=== PATIENT | female | born 1970 | race African-American/Black ===

== ENCOUNTER → 2021-05-01 | Outpatient (CLI) | payer MEDICAID ==
[~2021-05-01] MED LIST: NO HOME MEDICATION
[2021-05-01 09:44] LABS: Basophils # (auto) 0 10 ^3/uL (0-0.2); Basophils % (auto) 0.6 % (0.0-2.0); Eosinophils # (auto) 0.1 10 ^3/uL (0-0.8); Eosinophils % (auto) 1.1 % (0.0-7.0); Hematocrit 39.3 % (36.0-46.0); Hemoglobin 13.1 g/dL (12.2-16.2); Lymphocytes # (auto) 1.9 10 ^3/uL (0.4-5.4); Lymphocytes % (auto) 28.2 % (10.0-50.0); Mean Corpuscular Hemoglobin 30.7 pg (28.0-32.0); Mean Corpuscular Hgb Conc. 33.4 g/dL (32.0-36.0); Mean Corpuscular Volume 91.9 fL (80.0-100.0); Monocytes # (auto) 0.6 10 ^3/uL (0-1.3); Monocytes % (auto) 8.5 % (0.0-12.0); Neutrophils # (auto) 4.2 10 ^3/uL (1.6-8.6); Neutrophils % (auto) 61.6 % (37.0-80.0); Nucleated Red Blood Cells % 0.1 %; Red Blood Cells 4.27 10^6/uL (4.0-5.20); Red Cell Distribution Width 13.3 % (11.8-14.3); White Blood Cell 6.9 10^3/uL (4.4-10.8)
[2021-05-01 11:17] LABS: Follicle Stimulating Hormone 37.96 IU/L (SEE BELOW); Leuteinizing Hormone 18.3 IU/L
== END | disposition home or self-care (01) ==
LOC: LAB 09:27
PROVIDERS: ATTEND Specialist
DX: Z01.419 Encounter for gynecological examination (general) (routine) without abnormal findings (principal)
CPT/HCPCS: 36415; 83001; 83002; 85025

== ENCOUNTER → 2021-11-24 | Outpatient (CLI) | payer MEDICAID ==
[2021-11-24 11:25] LABS: Basophils # (auto) 0 10 ^3/uL (0-0.2); Basophils % (auto) 0.5 % (0.0-2.0); Eosinophils # (auto) 0 10 ^3/uL (0-0.8); Eosinophils % (auto) 0.7 % (0.0-7.0); Hematocrit 39.1 % (36.0-46.0); Hemoglobin 13.1 g/dL (12.2-16.2); Lymphocytes % (auto) 30.7 % (10.0-50.0); Mean Corpuscular Hgb Conc. 33.5 g/dL (32.0-36.0); Mean Corpuscular Volume 92.4 fL (80.0-100.0); Monocytes # (auto) 0.4 10 ^3/uL (0-1.3); Monocytes % (auto) 6.8 % (0.0-12.0); Neutrophils # (auto) 3.9 10 ^3/uL (1.6-8.6); Neutrophils % (auto) 61.3 % (37.0-80.0); Red Blood Cells 4.23 10^6/uL (4.0-5.20); Red Cell Distribution Width 13.1 % (11.8-14.3); White Blood Cell 6.4 10^3/uL (4.4-10.8)
[2021-11-24 12:23] LABS: Potassium 3.6 mmol/L (3.5-5.1)
[2021-11-24 12:29] LABS: Albumin 3.8 g/dL (3.4-5.0); BUN/Creatinine Ratio 20.2; Bilirubin, Total 0.5 mg/dL (0.2-1.0)
== END | disposition home or self-care (01) ==
LOC: LAB 09:48
PROVIDERS: ATTEND Internal Medicine
DX: C50.912 Malignant neoplasm of unspecified site of left female breast (principal)
CPT/HCPCS: 36415; 80053; 83615; 85025; 86300

== ENCOUNTER → 2021-12-01 | Day surgery (SDC) | payer MEDICAID ==
[2021-11-28 10:27] LABS: Basophils # (auto) 0 10 ^3/uL (0-0.2); Basophils % (auto) 0.5 % (0.0-2.0); Eosinophils # (auto) 0 10 ^3/uL (0-0.8); Eosinophils % (auto) 0.5 % (0.0-7.0); Hematocrit 40.8 % (36.0-46.0); Hemoglobin 13.4 g/dL (12.2-16.2); Lymphocytes % (auto) 29.8 % (10.0-50.0); Mean Corpuscular Hemoglobin 30.4 pg (28.0-32.0); Mean Corpuscular Hgb Conc. 32.8 g/dL (32.0-36.0); Mean Corpuscular Volume 92.7 fL (80.0-100.0); Monocytes # (auto) 0.5 10 ^3/uL (0-1.3); Monocytes % (auto) 7.1 % (0.0-12.0); Neutrophils # (auto) 4.1 10 ^3/uL (1.6-8.6); Neutrophils % (auto) 62.1 % (37.0-80.0); Nucleated Red Blood Cells % 0.1 %; Red Cell Distribution Width 13.2 % (11.8-14.3); White Blood Cell 6.5 10^3/uL (4.4-10.8)
[2021-11-28 12:43] LABS: Potassium 3.3 mmol/L (3.5-5.1)
[2021-11-28 12:48] LABS: Albumin 3.8 g/dL (3.4-5.0); BUN/Creatinine Ratio 14.3; Calcium 9.4 mg/dL (8.5-10.1)
[2021-11-28 12:50] LABS: Bilirubin, Total 0.5 mg/dL (0.2-1.0); Total Protein 7.9 g/dL (6.4-8.2)
[~2021-12-01] VITALS: Ht 157.5 cm; Wt 57.6 kg
[~2021-12-01] MED LIST changes: +ASCO500T11 PO; +CHOL20007 PO; +CYAN1TAB14 PO; +LISI20TA28 PO; +MIDAZOLAM HCL 5 MG/ML-1ML VIAL ONE; -NO HOME MEDICATION; +SODIUM CHLORIDE LOCK 10 ML ONE
[2021-12-01] MEDS: MIDAZOLAM HCL 5 MG/ML-1ML VIAL ONE ×4 (13:52→14:04)
[2021-12-01] MEDS: fentaNYL CITRATE 100 MCG/2 ML VL ONE ×4 (13:52→14:07)
[2021-12-01] MEDS: diphenhdrAMINE HCL 50 MG/1 ML VL ONE ×2 (13:52→13:57)
[2021-12-01 15:05] VITALS: BP 166/74
== END | disposition home or self-care (01) ==
LOC: GI 13:03
PROVIDERS: ATTEND Internal Medicine Gastroenterology
DX: Z12.11 Encounter for screening for malignant neoplasm of colon (principal); K64.8 Other hemorrhoids; K63.89 Other specified diseases of intestine; Z85.3 Personal history of malignant neoplasm of breast; Z90.12 Acquired absence of left breast and nipple; Z98.51 Tubal ligation status; Z82.49 Family history of ischemic heart disease and other diseases of the circulatory system; Z83.42 Family history of familial hypercholesterolemia; Z82.61 Family history of arthritis; Z81.8 Family history of other mental and behavioral disorders; Z88.0 Allergy status to penicillin; Z88.1 Allergy status to other antibiotic agents; Z20.822 Contact with and (suspected) exposure to COVID-19
CPT/HCPCS: 36415; 45378; 80053; 81025; 84702; 85025; J1200; J2250; J3010; J7030; U0003; 99152

== ENCOUNTER → 2022-11-20 | Outpatient (CLI) | payer MEDICAID ==
[~2022-11-20] MED LIST changes: -MIDAZOLAM HCL 5 MG/ML-1ML VIAL ONE; -SODIUM CHLORIDE LOCK 10 ML ONE
[2022-11-20 08:24] LABS: Follicle Stimulating Hormone 130.13 IU/L (SEE BELOW); Prolactin 6.39 ng/mL (2.8-29.2)
== END | disposition home or self-care (01) ==
LOC: LAB 06:56
PROVIDERS: ATTEND Student in an Organized Health Care Education/Training Program
DX: N95.1 Menopausal and female climacteric states (principal)
CPT/HCPCS: 36415; 83001; 84132; 84146; 84443

== ENCOUNTER → 2022-12-31 | Outpatient (CLI) | payer MEDICAID ==
[2022-12-31 07:27] LABS: Basophils # (auto) 0.1 10 ^3/uL (0-0.2); Basophils % (auto) 0.8 % (0.0-2.0); Eosinophils # (auto) 0.1 10 ^3/uL (0-0.8); Hematocrit 39.1 % (36.0-46.0); Hemoglobin 12.9 g/dL (12.2-16.2); Lymphocytes # (auto) 2.3 10 ^3/uL (0.4-5.4); Lymphocytes % (auto) 33.3 % (10.0-50.0); Mean Corpuscular Hemoglobin 30.1 pg (28.0-32.0); Mean Corpuscular Volume 91.2 fL (80.0-100.0); Monocytes # (auto) 0.6 10 ^3/uL (0-1.3); Monocytes % (auto) 8.3 % (0.0-12.0); Neutrophils % (auto) 56.6 % (37.0-80.0); Red Blood Cells 4.29 10^6/uL (4.0-5.20); Red Cell Distribution Width 13.6 % (11.8-14.3)
[2022-12-31 08:12] LABS: Albumin 3.8 g/dL (3.4-5.0); Calcium 9.3 mg/dL (8.5-10.1); Potassium 3.1 mmol/L (3.5-5.1)
[2022-12-31 08:21] LABS: BUN/Creatinine Ratio 22.9; Bilirubin, Total 0.7 mg/dL (0.2-1.0)
== END | disposition home or self-care (01) ==
LOC: LAB 07:03
PROVIDERS: ATTEND Student in an Organized Health Care Education/Training Program
DX: I10 Essential (primary) hypertension (principal); N95.1 Menopausal and female climacteric states
CPT/HCPCS: 36415; 80053; 80061; 82274; 85025

== ENCOUNTER → 2023-02-12 | Outpatient (CLI) | payer MEDICAID | END | disposition home or self-care (01) | LOC: LAB 15:43 | PROVIDERS: ATTEND Student in an Organized Health Care Education/Training Program | DX: I10 Essential (primary) hypertension (principal); E87.6 Hypokalemia | CPT/HCPCS: 36415; 84132 ==

== ENCOUNTER → 2023-09-13 | Outpatient (CLI) | payer MEDICAID ==
[~2023-09-13] MED LIST changes: -LISI20TA28 PO; +LISI20TA56 PO
[2023-09-13 07:23] LABS: Basophils # (auto) 0 10 ^3/uL (0-0.2); Basophils % (auto) 0.7 % (0.0-2.0); Eosinophils # (auto) 0.1 10 ^3/uL (0-0.8); Hematocrit 39.7 % (36.0-46.0); Lymphocytes # (auto) 2.1 10 ^3/uL (0.4-5.4); Lymphocytes % (auto) 33.8 % (10.0-50.0); Mean Corpuscular Hgb Conc. 32.7 g/dL (32.0-36.0); Mean Corpuscular Volume 91.8 fL (80.0-100.0); Monocytes # (auto) 0.5 10 ^3/uL (0-1.3); Monocytes % (auto) 8.5 % (0.0-12.0); Neutrophils # (auto) 3.5 10 ^3/uL (1.6-8.6); Nucleated Red Blood Cells % 0.1 %; Red Blood Cells 4.32 10^6/uL (4.0-5.20); Red Cell Distribution Width 13.5 % (11.8-14.3); White Blood Cell 6.2 10^3/uL (4.4-10.8)
[2023-09-13 07:31] LABS: Urine Bacteria NONE SEEN /hpf (None Seen); Urine Blood Negative /uL (Negative); Urine Clarity Clear (Clear); Urine Color Yellow (Yellow); Urine Protein, UAD Negative (Negative); Urine Urobilinogen Normal (Negative); Urine WBC <1 /hpf (0 - 5); Urine pH 5.5 (5.0-8.0)
[2023-09-13 08:01] LABS: Alanine Aminotransferase 27 U/L (7-40); Albumin 4.6 g/dL (3.2-4.8); Alkaline Phosphatase 90 U/L (46-116); Anion Gap 11 (5-15); Aspartate Aminotransferase 18 U/L (13-40); BUN/Creatinine Ratio 12.4 (10.0-20.0); Blood Urea Nitrogen 12 mg/dL (9-23); Calcium 9.3 mg/dL (8.5-10.1); Carbon Dioxide 25 mmol/L (20-30); Chloride 101 mmol/L (98-107); Glucose 85 mg/dL (74-106); LDL Cholesterol 118 mg/dL (< 100); Potassium 3.2 mmol/L (3.5-5.1); Sodium 137 mmol/L (136-145); Triglycerides 96 mg/dL (< 150)
[2023-09-13 08:02] LABS: Bilirubin, Total 0.8 mg/dL (0.2-1.0); Cholesterol 187 mg/dL (< 200); Free T4 (Free Thyroxine) 0.87 ng/dL (0.89-1.76); HDL Cholesterol 54 mg/dL (40-59); Total Protein 7.6 g/dL (5.7-8.2)
[2023-09-14 08:06] LABS: CA 27.29 16.6 U/mL (0.0-38.6)
[2023-09-14 09:06] LABS: Cancer Antigen (CA) 125 5.5 U/mL (0.0-38.1); Cancer Antigen (CA) 15-3 16.1 U/mL (0.0-25.0); Carbohydrate Antigen 19-9 <2 U/mL (0-35)
== END | disposition home or self-care (01) ==
LOC: LAB 06:47
PROVIDERS: ATTEND Internal Medicine
DX: E78.6 Lipoprotein deficiency (principal); I10 Essential (primary) hypertension; Z98.890 Other specified postprocedural states
CPT/HCPCS: 36415; 80053; 80061; 81001; 82306; 82607; 83036; 84439; 84443; 85025; 86300; 86301; 86304

== ENCOUNTER → 2023-09-25 | Outpatient (CLI) | payer MEDICAID ==
[2023-09-25 08:09] LABS: Chloride 106 mmol/L (98-107); Potassium 3.7 mmol/L (3.5-5.1); Sodium 140 mmol/L (136-145)
[2023-09-25 08:10] LABS: Anion Gap 6 (5-15); Calcium 9.7 mg/dL (8.5-10.1); Carbon Dioxide 28 mmol/L (20-30)
[2023-09-25 08:15] LABS: BUN/Creatinine Ratio 11.8 (10.0-20.0); Blood Urea Nitrogen 13 mg/dL (9-23); Glucose 83 mg/dL (74-106)
== END | disposition home or self-care (01) ==
LOC: LAB 07:16
PROVIDERS: ATTEND Internal Medicine
DX: E87.6 Hypokalemia (principal)
CPT/HCPCS: 36415; 80048

== ENCOUNTER 2023-12-12 09:40 | Emergency (ER) | payer MEDICAID ==
[~2023-12-12] VITALS: Ht 157.5 cm; Wt 60.5 kg
[2023-12-12 10:35] VITALS: BP 197/98; PULSE 66; RESP 18; TEMP 98.7; O2SAT 98
[2023-12-12 10:37] LABS: Basophils # (auto) 0.1 10 ^3/uL (0-0.2); Basophils % (auto) 1.1 % (0.0-2.0); Eosinophils # (auto) 0.1 10 ^3/uL (0-0.8); Eosinophils % (auto) 0.8 % (0.0-7.0); Hematocrit 42.2 % (36.0-46.0); Hemoglobin 13.7 g/dL (12.2-16.2); Lymphocytes # (auto) 2.2 10 ^3/uL (0.4-5.4); Lymphocytes % (auto) 32.1 % (10.0-50.0); Mean Corpuscular Hemoglobin 29.9 pg (28.0-32.0); Mean Corpuscular Hgb Conc. 32.5 g/dL (32.0-36.0); Mean Corpuscular Volume 92.1 fL (80.0-100.0); Monocytes # (auto) 0.4 10 ^3/uL (0-1.3); Monocytes % (auto) 5.3 % (0.0-12.0); Neutrophils # (auto) 4.2 10 ^3/uL (1.6-8.6); Neutrophils % (auto) 60.7 % (37.0-80.0); Nucleated Red Blood Cells % 0.1 %; Red Blood Cells 4.58 10^6/uL (4.0-5.20); Red Cell Distribution Width 13.5 % (11.8-14.3)
[2023-12-12 10:48] LABS: Chloride 106 mmol/L (98-107); Potassium 3.6 mmol/L (3.5-5.1); Sodium 142 mmol/L (136-145)
[2023-12-12 10:49] LABS: Anion Gap 8 (5-15); Carbon Dioxide 28 mmol/L (20-30)
[2023-12-12 10:50] LABS: Calcium 9.4 mg/dL (8.7-10.4)
[2023-12-12 10:54] LABS: BUN/Creatinine Ratio 11.2 (10.0-20.0); Blood Urea Nitrogen 10 mg/dL (9-23); Glucose 89 mg/dL (74-106)
[2023-12-12] MEDS: cloNIDine HCL 0.1 MG TAB PO ONE (10:57)
[2023-12-12] MEDS ORDERED: IBUP-1454 PO (11:50)
[2023-12-12] MEDS ORDERED: METH4PAK PO (11:50)
[2023-12-12] MEDS ORDERED: BACDST PO (11:50)
[2023-12-12 12:05] LABS: Urine Bacteria NONE SEEN /hpf (None Seen); Urine Blood Negative /uL (Negative); Urine Clarity Clear (Clear); Urine Protein, UAD Negative (Negative); Urine Specific Gravity 1.018 (1.001-1.035); Urine Urobilinogen Normal (Negative); Urine WBC <1 /hpf (0 - 5); Urine pH 6.5 (5.0-8.0)
[2023-12-12 12:06] LABS: Urine Color Straw (Yellow)
== END 2023-12-12 11:59 | disposition home or self-care (01) ==
LOC: ER 09:40
DX: J01.90 Acute sinusitis, unspecified (principal); I10 Essential (primary) hypertension; Z79.899 Other long term (current) drug therapy; Z88.0 Allergy status to penicillin; Z88.1 Allergy status to other antibiotic agents; Z88.8 Allergy status to other drugs, medicaments and biological substances
CPT/HCPCS: 36415; 80048; 81001; 85025; 93005

== ENCOUNTER → 2024-04-08 | Outpatient (CLI) | payer MEDICAID ==
[~2024-04-08] MED LIST changes: +BACDST PO; +IBUP-1454 PO; +METH4PAK PO
[2024-04-08 07:47] LABS: Urine Bacteria None Seen /hpf (None Seen)
[2024-04-08 08:12] LABS: Urine Blood Negative /uL (Negative); Urine Clarity Clear (Clear); Urine Protein, UAD Negative (Negative); Urine Specific Gravity 1.008 (1.001-1.035); Urine Urobilinogen Normal (Negative); Urine WBC <1 /hpf (0 - 5)
[2024-04-08 08:13] LABS: Urine Color Straw (Yellow)
[2024-04-08 08:18] LABS: Basophils # (auto) 0 10 ^3/uL (0-0.2); Basophils % (auto) 0.5 % (0.0-2.0); Eosinophils # (auto) 0.1 10 ^3/uL (0-0.8); Eosinophils % (auto) 1.1 % (0.0-7.0); Hematocrit 39.6 % (36.0-46.0); Hemoglobin 13.1 g/dL (12.2-16.2); Lymphocytes # (auto) 2.3 10 ^3/uL (0.4-5.4); Lymphocytes % (auto) 32.8 % (10.0-50.0); Mean Corpuscular Hemoglobin 30.3 pg (28.0-32.0); Mean Corpuscular Volume 91.6 fL (80.0-100.0); Monocytes # (auto) 0.5 10 ^3/uL (0-1.3); Monocytes % (auto) 6.7 % (0.0-12.0); Neutrophils # (auto) 4.1 10 ^3/uL (1.6-8.6); Neutrophils % (auto) 58.9 % (37.0-80.0); Nucleated Red Blood Cells % 0.1 %; Red Blood Cells 4.32 10^6/uL (4.0-5.20); Red Cell Distribution Width 13.3 % (11.8-14.3)
[2024-04-08 08:37] LABS: Alanine Aminotransferase 18 U/L (7-40); Albumin 4.5 g/dL (3.2-4.8); Alkaline Phosphatase 105 U/L (46-116); Anion Gap 8 (5-15); Aspartate Aminotransferase 15 U/L (13-40); BUN/Creatinine Ratio 9.9 (10.0-20.0); Bilirubin, Total 0.7 mg/dL (0.2-1.0); Blood Urea Nitrogen 9 mg/dL (9-23); Calcium 9.7 mg/dL (8.5-10.1); Carbon Dioxide 26 mmol/L (20-30); Chloride 105 mmol/L (98-107); Cholesterol 156 mg/dL (< 200); Glucose 88 mg/dL (74-106); HDL Cholesterol 51 mg/dL (40-59); LDL Cholesterol 94 mg/dL (< 100); Potassium 3.6 mmol/L (3.5-5.1); Sodium 139 mmol/L (136-145); Total Protein 7.4 g/dL (5.7-8.2); Triglycerides 105 mg/dL (< 150)
== END | disposition home or self-care (01) ==
LOC: LAB 07:36
PROVIDERS: ATTEND Internal Medicine
DX: I10 Essential (primary) hypertension (principal); R73.03 Prediabetes; E53.8 Deficiency of other specified B group vitamins; E55.9 Vitamin D deficiency, unspecified; Z86.39 Personal history of other endocrine, nutritional and metabolic disease
CPT/HCPCS: 36415; 80053; 80061; 81001; 82306; 82607; 83036; 85025

== ENCOUNTER → 2024-11-02 | Outpatient (CLI) | payer MEDICAID ==
[2024-11-02 07:23] LABS: Urine Bacteria None Seen /hpf (None Seen)
[2024-11-02 07:41] LABS: Basophils # (auto) 0.1 10 ^3/uL (0-0.2); Basophils % (auto) 1.1 % (0.0-2.0); Eosinophils # (auto) 0 10 ^3/uL (0-0.8); Eosinophils % (auto) 0.7 % (0.0-7.0); Hemoglobin 13.1 g/dL (12.2-16.2); Lymphocytes # (auto) 2.5 10 ^3/uL (0.4-5.4); Lymphocytes % (auto) 35.8 % (10.0-50.0); Mean Corpuscular Hemoglobin 30.4 pg (28.0-32.0); Mean Corpuscular Hgb Conc. 32.8 g/dL (32.0-36.0); Mean Corpuscular Volume 92.9 fL (80.0-100.0); Monocytes # (auto) 0.5 10 ^3/uL (0-1.3); Neutrophils # (auto) 3.8 10 ^3/uL (1.6-8.6); Neutrophils % (auto) 55.4 % (37.0-80.0); Nucleated Red Blood Cells % 0.1 %; Platelet Count (auto) 215 10^3/uL (140-450); Red Blood Cells 4.31 10^6/uL (4.0-5.20); Red Cell Distribution Width 13.4 % (11.8-14.3); White Blood Cell 6.9 10^3/uL (4.4-10.8)
[2024-11-02 08:05] LABS: Urine Blood TRACE /uL (Negative); Urine Clarity Clear (Clear); Urine Color Light-Yellow (Yellow); Urine Protein, UAD Negative (Negative); Urine Specific Gravity 1.022 (1.001-1.035); Urine Squamous Epithelial Cell FEW /hpf (<5); Urine Urobilinogen Normal (Negative); Urine WBC 1 /hpf (0 - 5)
[2024-11-02 08:14] LABS: Alanine Aminotransferase 23 U/L (7-40); Albumin 4.6 g/dL (3.2-4.8); Alkaline Phosphatase 100 U/L (46-116); Triglycerides 101 mg/dL (< 150)
[2024-11-02 08:15] LABS: Anion Gap 9 (5-15); Aspartate Aminotransferase 23 U/L (13-40); BUN/Creatinine Ratio 20.2 (10.0-20.0); Bilirubin, Total 0.9 mg/dL (0.2-1.0); Blood Urea Nitrogen 19 mg/dL (9-23); Carbon Dioxide 25 mmol/L (20-31); Chloride 107 mmol/L (98-107); Cholesterol 191 mg/dL (< 200); Glucose 78 mg/dL (74-106); HDL Cholesterol 55 mg/dL (40-59); Potassium 3.6 mmol/L (3.5-5.1); Sodium 141 mmol/L (136-145); Total Protein 7.4 g/dL (5.7-8.2)
[2024-11-02 08:16] LABS: LDL Cholesterol 116 mg/dL (< 100)
== END | disposition home or self-care (01) ==
LOC: LAB 06:40
PROVIDERS: ATTEND Internal Medicine
DX: I10 Essential (primary) hypertension (principal); E55.9 Vitamin D deficiency, unspecified; E53.8 Deficiency of other specified B group vitamins; R73.03 Prediabetes
CPT/HCPCS: 36415; 80053; 80061; 81001; 82306; 82607; 83036; 85025

== ENCOUNTER → 2025-03-19 | Outpatient (CLI) | payer MEDICAID ==
[2025-03-19 10:53] LABS: Basophils # (auto) 0.1 10 ^3/uL (0-0.2); Basophils % (auto) 0.9 % (0.0-2.0); Eosinophils # (auto) 0 10 ^3/uL (0-0.8); Eosinophils % (auto) 0.7 % (0.0-7.0); Hematocrit 41.9 % (36.0-46.0); Hemoglobin 14.1 g/dL (12.2-16.2); Lymphocytes % (auto) 28.7 % (10.0-50.0); Mean Corpuscular Hemoglobin 30.5 pg (28.0-32.0); Mean Corpuscular Hgb Conc. 33.6 g/dL (32.0-36.0); Mean Corpuscular Volume 90.6 fL (80.0-100.0); Monocytes # (auto) 0.5 10 ^3/uL (0-1.3); Monocytes % (auto) 7.2 % (0.0-12.0); Neutrophils # (auto) 4.3 10 ^3/uL (1.6-8.6); Neutrophils % (auto) 62.5 % (37.0-80.0); Nucleated Red Blood Cells % 0.1 %; Platelet Count (auto) 227 10^3/uL (140-450); Red Blood Cells 4.62 10^6/uL (4.0-5.20); Red Cell Distribution Width 12.8 % (11.8-14.3); White Blood Cell 6.8 10^3/uL (4.4-10.8)
[2025-03-19 11:34] LABS: Alanine Aminotransferase 19 U/L (7-40); Alkaline Phosphatase 107 U/L (46-116); Anion Gap 7 (5-15); Aspartate Aminotransferase 17 U/L (13-40); Blood Urea Nitrogen 16 mg/dL (9-23); Carbon Dioxide 29 mmol/L (20-31); Glucose 88 mg/dL (74-106); Potassium 4.2 mmol/L (3.5-5.1); Sodium 143 mmol/L (136-145)
[2025-03-19 11:39] LABS: Calcium 10.6 mg/dL (8.7-10.4); Chloride 107 mmol/L (98-107)
== END | disposition home or self-care (01) ==
LOC: LAB 10:33
PROVIDERS: ATTEND Internal Medicine
DX: C50.912 Malignant neoplasm of unspecified site of left female breast (principal); Z88.0 Allergy status to penicillin
CPT/HCPCS: 36415; 80053; 83615; 85025; 86300

== ENCOUNTER 2025-06-29 10:31 | Outpatient (CLI) | payer MEDICAID ==
[2025-06-29 11:34] LABS: Alanine Aminotransferase 37 U/L (7-40); Albumin 4.4 g/dL (3.2-4.8); Alkaline Phosphatase 109 U/L (46-116); Anion Gap 8 (5-15); BUN/Creatinine Ratio 14.3 (10.0-20.0); Blood Urea Nitrogen 12 mg/dL (9-23); Calcium 9.3 mg/dL (8.7-10.4); Carbon Dioxide 29 mmol/L (20-31); Chloride 103 mmol/L (98-107); Cholesterol 182 mg/dL (< 200); Glucose 84 mg/dL (74-106); HDL Cholesterol 56 mg/dL (40-59); Potassium 4.2 mmol/L (3.5-5.1); Sodium 140 mmol/L (136-145); Total Protein 7.7 g/dL (5.7-8.2); Triglycerides 102 mg/dL (< 150)
[2025-06-29 11:35] LABS: Bilirubin, Total 0.7 mg/dL (0.2-1.0)
== END 2025-06-29 17:00 | disposition home or self-care (01) ==
LOC: LAB 10:31
PROVIDERS: ATTEND Internal Medicine
DX: I10 Essential (primary) hypertension (principal); E55.9 Vitamin D deficiency, unspecified; E53.8 Deficiency of other specified B group vitamins; R73.03 Prediabetes; R53.83 Other fatigue
CPT/HCPCS: 36415; 80053; 80061; 82306; 82607; 83036

== ENCOUNTER 2025-09-22 06:58 | Outpatient (CLI) | payer MEDICAID ==
[~2025-09-22] VITALS: Ht 157.5 cm; Wt 59.0 kg
--- NOTE | 2025-09-22 12:10 | DVHCARD ---
Cardiology Stress Test [place] Treadmill Stress Test [place] Referring MD: MD Tila Protocol: Amor (with cardiolite) Reason for referral: Other (Newly diagnosed HFrEF) Target heart Rate:@85%: 141 Percent MPHR: 166 METS: 10.10 Resting Heart rate: 62 Resting Blood Pressure: 179/95 Exercise Heart Rate: 184 Exercise Blood Pressure: 235/109 Reason for Termination of Test: Completion of Protocol Baseline EKG: Sinus rhythm, T-wave inversion to inferior, lateral and anterior leads Stress EKG: Sinus tachycardia with non-progressive ST-segment changes Functional Capacity: Good Normal Heart Rate Response: Adequate Blood Pressure Response: Hypertensive Clinical response: Non-ischemic Arrhythmia?: No Cardiolite Injected?: Yes ST-T Changes: Non/Minimal Probability of Inducible Ische: Perfusion result pending Comments: Consider cardiac catheterization given newly diagnosed CM Date of Service: Sep 22, 2025 Billing Provider: MARVEL EUCEDA Cardiology Common Codes: PROCEDURE ONLY Treadmill W/Cardiolite Nuclear: [id number], INTERP, RPT MARVEL EUCEDA Sep 22, 2025 12:10
--- NOTE | 2025-09-27 09:35 | DVHSR ---
APPROVED REPORT Exam: Nuclear Stress Test BMI: 0 Stress Test Details Stress Test: Exercise stress testing was performed using a Amor protocol. 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 PIV S/L flushes well, reviewed POC, pt verbalized understanding. [place] INSTRUCTOR OF NURSING here to monitor exam. Treadmill test performed per protocol. Pt stable, tolerated well, VS returned to baseline. Pt to follow up with telephone interceptor operator for results. Stress ECG Conclusion lvef 39% mild anterior wall reversible ischemia cannot rule out breast artifact 1/[address] depression inferior on stress portion NM EXAM: Myocardial Perfusion REST/STRESS Imaging Protocol: Rest Tc-99m/Stress Tc-99m 1 day Resting Data Rest SPECT myocardial perfusion imaging was performed in supine position 60 minutes following the intravenous injection of 10.0 mCi of Tc-99m Sestamibi. Time of rest injection: 07:45 Date: 09/22/2025 Time of rest imagin:45 Date: 09/22/2025 Administration Route: IV Administration Site: Right Hand Pharmacologic Stress Pharmacologic stress test was performed by injecting Regadenoson 0.4 mg IV push followed by the intravenous injection of 30.0 mCi of Tc-99m Sestamibi. Time of stress injection: 09:36 Date: 09/22/2025 Time of stress imagin:36 Date: 09/22/2025 Administration Route: IV Administration Site: Right Hand Gated Stress SPECT was performed 60 minutes after stress injection. The images were gated to evaluate regional wall motion and calculate left ventricular ejection fraction. Stress only was performed in the Supine position. Nuclear Conclusion Nuclear Findings: positive for ischemia lvef 39% mild anterior wall reversible ischemia cannot rule out breast artifact 1/[address] depression inferior on stress portion
[2025-09-30] MEDS ORDERED: SACU1TAB PO (10:55)
== END 2025-09-22 17:00 | disposition home or self-care (01) ==
LOC: XYW 06:58
PROVIDERS: ATTEND Internal Medicine
DX: I11.0 Hypertensive heart disease with heart failure (principal); I50.20 Unspecified systolic (congestive) heart failure
CPT/HCPCS: 78452; A9500; 93017

== ENCOUNTER 2025-09-29 14:54 | Inpatient (IN) | payer MEDICAID ==
[~2025-09-29] VITALS: Ht 157.5 cm; Wt 62.3 kg
[2025-09-29 15:45] VITALS: BP 172/104; PULSE 69; RESP 17; TEMP 97.4; O2SAT 98
[2025-09-29] MEDS ORDERED: POTA-36 PO (15:59)
[2025-09-29] MEDS ORDERED: ERGO2000 PO (15:59)
[2025-09-29] MEDS ORDERED: CYAN100T7 PO (15:59)
[2025-09-29] MEDS ORDERED: LOSA-534 PO (15:59)
[2025-09-29] MEDS ORDERED: ACETAMINOPHEN 325 MG TAB PO PRN (16:15)
[2025-09-29] MEDS ORDERED: NITROGLYCERIN 0.4 MG SL TAB SL PRN (16:15)
[2025-09-29] MEDS ORDERED: MORPHINE SULFATE INJ 2 MG/ml SYRG IV PRN ×2 (16:15)
[2025-09-29] MEDS ORDERED: LORazepam 0.5 MG TAB PO PRN (16:15)
[2025-09-29] MEDS: SODIUM CHLORIDE 0.9% 1,000 ML IV SCH (16:15)
--- NOTE | 2025-09-29 16:18 | DVHHP2 ---
History of Present Illness Reason for Visit: Shortness of Breath History of Present Illness Patient is a 55 year-old F with a PMHx of Hypertensive Heart Disease w/chronic systolic CHF who presented to the clinic today with complaints of worsening shortness of breath and occasional chest pain. Patient had a NM stress test done recently which showed that was positive for Ischemia. Patient was suppose to see Cardiology clinic but did not do so. Patient was admitted for further workup. Review of Systems Constitutional: No: Fever, Chills, Sweats, Weakness, Malaise, Other Eyes: No: Pain, Vision change, Conjunctivae inflammation, Eyelid inflammation, Other, Redness ENT: No: Ear pain, Ear discharge, Nose pain, Nose discharge, Nose congestion, Mouth pain, Mouth swelling, Throat pain, Throat swelling, Other Respiratory: No: Cough, Dry, Shortness of breath, SOB with excertion, Wheezing, Hemoptysis, Pleuritic Pain, Sputum, Wheezing, Other Cardiovascular: No: Chest Pain, Palpitations, Orthopnea, Paroxysmal Noc. Dyspnea, Edema, Lt Headedness, Other Gastrointestinal: No: Nausea, Vomiting, Abdominal Pain, Diarrhea, Constipation, Melena, Hematochezia, Other Genitourinary: No Dysuria, No Frequency, No Incontinence, No Hematuria, No Retention, No Other Musculoskeletal: No: other, neck pain, shoulder pain, arm pain, back pain, hand pain, leg pain, foot pain Skin: No: Rash, Lesions, Jaundice, Bruising, Other Neurological: No: Weakness, Numbness, Incoordination, Change in speech, Confusion, Seizures, Other Allergies: Coded Allergies: Cephalexin (Verified Allergy, Mild, 09/22/25) Levofloxacin (Unverified Allergy, Mild, rash, 09/22/25) Penicillins (Verified Allergy, Mild, 09/22/25) Ciprofloxacin (Verified Allergy, Unknown, 09/22/25) Medications Current Medications Medications Dose Ordered Sig/Lynsey Route Start Time Stop Time Status Last Admin Dose Admin Sodium Chloride 1,000 ml @ 60 mls/hr [id number] IV 09/29/25 16:15 UNV Lorazepam 0.5 mg Q6HP PRN PO 09/29/25 16:15 UNV Acetaminophen 650 mg Q6HP PRN PO 09/29/25 16:15 UNV Acetaminophen/ Hydrocodone Bitart 1 tab Q4HP PRN PO 09/29/25 16:15 UNV Ondansetron HCl 4 mg Q4HP PRN IV 09/29/25 16:15 UNV Morphine Sulfate 2 mg Q4HPRN PRN IV 09/29/25 16:15 UNV Nitroglycerin 0.4 mg Q5MINP PRN SL 09/29/25 16:15 UNV Morphine Sulfate 2 mg Q30M PRN IV 09/29/25 16:15 UNV Exam General Appearance: Alert, Oriented X3, Cooperative, No acute distress HEENT: Atraumatic Respiratory: Clear to auscultation Cardiovascular: Regular rate, Normal S1, Normal S2 Abdominal: Normal bowel sounds, Soft Extremities: No clubbing Psych/Mental Status: Mental status NL SEPSIS Sepsis Screen Physician Orders Chest Xray 1 View (09/29/25 15:24) Electrocardigram (09/29/25 15:27) Admit (09/29/25 16:06) Code Status (09/29/25 16:06) Review Orders With Adm.Md (09/29/25 16:06) Regular Diet (09/29/25 Dinner) Sodium Chloride 0.9% (09/29/25 16:15) Lorazepam Tablet (Ativan Tablet) (09/29/25 16:15) Acetaminophen Tablet (Tylenol Tablet) (09/29/25 16:15) Notify Md Of Changes From Base (09/29/25 16:06) Advance Directive (09/29/25 16:06) Urinalysis (09/29/25 16:06) Complete Blood Count (09/29/25 16:06) Patient Condition (09/29/25 16:06) Allergies (09/29/25 16:06) Hydrocodone-Acet 5/325mg Tab ([place] 5/32 (09/29/25 16:15) Ondansetron Hcl (Zofran) (09/29/25 16:15) Morphine Sulfate Injection (09/29/25 16:15) Nitroglycerin Sublingual (Ntrostat Subli (09/29/25 16:15) Morphine Sulfate Injection (09/29/25 16:15) Stat Ekg For Chest Pain (09/29/25 16:06) Notify Md Of Changes From Base (09/29/25 16:06) Record Clerk For 24 Hours (09/29/25 16:06) Emergency Dysrhythmia Protocol (09/29/25 16:06) Rhythm Strips Once Every Shift (09/29/25 16:06) Oxygen By Nasal Cannula (09/29/25 16:06) Comprehensive Metabolic Panel (09/29/25 16:06) Hemoglobin A1c (09/29/25 16:06) Npo After Midnight (09/29/25 16:06) Npo (Nothing By Mouth) Diet (09/30/25 Breakfast) Prothrombin Time W/ Inr (09/29/25 16:06) Partial Thromboplastin Time (09/29/25 16:06) Assessment/Plan Assessment/Plan # Unstable Angina - For [facility] tomorrow by Dr. Hopkins # Chronic Systolic CHF - EF 40% - Entresto as outpatient # Hypertensive Heart Disease - Resume Losartan on discharge Plan discussed with: Patient My Orders Orders - TAMMY COVARRUBIAS MD Procedure Category Date Status Time Chest Xray 1 View XY 09/29/25 Taken 15:24 Electrocardigram EKG 09/29/25 Logged 15:27 Admit ADMIT 09/29/25 Transmitted 16:06 Code Status CODE 09/29/25 Transmitted 16:06 Review Orders With CARLOS 09/29/25 In Process Adm. 16:06 Regular Diet DIET 09/29/25 Transmitted Dinner Sodium Chloride 0.9% PHA 09/29/25 Logged 16:15 Lorazepam Tablet PHA 09/29/25 Logged (Ativan Tablet) 16:15 Acetaminophen Tablet PHA 09/29/25 Logged (Tylenol Tablet) 16:15 Notify Of Changes [facility] 09/29/25 In Process From Base 16:06 Advance Directive [facility] 09/29/25 In Process 16:06 Urinalysis LAB 09/29/25 Logged 16:06 Complete Blood Count LAB 09/29/25 Logged 16:06 Patient Condition ORDERS 09/29/25 Transmitted 16:06 Allergies [facility] 09/29/25 In Process 16:06 Hydrocodone-Acet PHA 09/29/25 Logged 5/325mg Tab ([place] 16:15 Ondansetron Hcl PHA 09/29/25 Logged (Zofran) 16:15 Morphine Sulfate PHA 09/29/25 Logged Injection 16:15 Nitroglycerin PHA 09/29/25 Logged Sublingual (Ntrostat 16:15 Morphine Sulfate PHA 09/29/25 Logged Injection 16:15 Stat Ekg For Chest [facility] 09/29/25 In Process Pain 16:06 Notify Md Of Changes [facility] 09/29/25 In Process From Base 16:06 Record Clerk For [facility] 09/29/25 In Process 24 Hours 16:06 Emergency Dysrhythmia [facility] 09/29/25 In Process Protocol 16:06 Rhythm Strips Once [facility] 09/29/25 In Process Every Shift 16:06 Oxygen By Nasal RT 09/29/25 Transmitted Cannula 16:06 Comprehensive LAB 09/29/25 Logged Metabolic Panel 16:06 Hemoglobin A1c LAB 09/29/25 Logged 16:06 Npo After Midnight [facility] 09/29/25 In Process 16:06 Npo (Nothing By DIET 09/30/25 Transmitted Mouth) Diet Breakfast Prothrombin Time W/ LAB 09/29/25 Logged INR 16:06 Partial LAB 09/29/25 Logged Thromboplastin Time 16:06 Date of Service: Sep 29, 2025 Billing Provider: TAMMY COVARRUBIAS MD Common Visit Codes: [id number] INP/OBS CARE (HIGH) TAMMY COVARRUBIAS MD Sep 29, 2025 16:18
--- NOTE | 2025-09-29 16:20 | DVH ---
CHEST RADIOGRAPH INDICATION: SHORTNESS OF BREATH TECHNIQUE: Single frontal view of the chest was obtained COMPARISON: None FINDINGS: Lines and Tubes: None Lungs: No focal consolidation. Pleura: No effusion. No pneumothorax. Cardiomediastinal contours: Unremarkable Bones: No acute osseous abnormality. IMPRESSION: 1. No acute cardiopulmonary disease.
[2025-09-29 16:42] LABS: Hematocrit 39.6 % (36.0-46.0); Hemoglobin 13.2 g/dL (12.2-16.2); Mean Corpuscular Hemoglobin 30.3 pg (28.0-32.0); Mean Corpuscular Volume 90.7 fL (80.0-100.0); Nucleated Red Blood Cells % 0.1 %
[2025-09-29 16:58] LABS: Alanine Aminotransferase 25 U/L (7-40); Albumin 4.4 g/dL (3.2-4.8); Alkaline Phosphatase 104 U/L (46-116); Anion Gap 11 (5-15); BUN/Creatinine Ratio 19.8 (10.0-20.0); Bilirubin, Total 0.5 mg/dL (0.2-1.0); Blood Urea Nitrogen 18 mg/dL (9-23); Calcium 9.8 mg/dL (8.7-10.4); Carbon Dioxide 26 mmol/L (20-31); Chloride 106 mmol/L (98-107); Glucose 86 mg/dL (74-106); Potassium 4.2 mmol/L (3.5-5.1); Sodium 143 mmol/L (136-145); Total Protein 7.3 g/dL (5.7-8.2)
[2025-09-29 17:05] LABS: INR 1.0 (0.9-1.15); Partial Thromboplastin Time 29.9 SEC (24.5-34.5); Prothrombin Time 10.6 sec (9.3-11.8)
[2025-09-29] MEDS: LOSARTAN POTASSIUM 50 MG TAB PO ONE (17:27)
[2025-09-29 19:35] LABS: Urine Protein, UAD Negative (Negative)
[2025-09-29 20:00] VITALS: PULSE 67; RESP 16
[2025-09-29 21:00] VITALS: BP 147/97; PULSE 72; RESP 17; TEMP 97.5; O2SAT 99
[2025-09-30] VITALS (8 sets, daily range): BP systolic 105–162; BP diastolic 60–93; PULSE 58–74; RESP 12–18; TEMP 97.6–98; O2SAT 94–100
[2025-09-30] MEDS ORDERED: HEPARIN IN NS 1000Units/500mL 1,500 ML ONE (07:46)
[2025-09-30] MEDS ORDERED: IOHEXOL 350 MG/ML 100ML IJ ONE (07:46)
[2025-09-30] MEDS ORDERED: fentaNYL CITRATE 100 MCG/2 ML VL ONE (08:51)
[2025-09-30] MEDS ORDERED: MIDAZOLAM HCL 2MG/2ML 2ml VIAL (1mg/ml) ONE (08:51)
[2025-09-30] MEDS ORDERED: LIDOCAINE 2%HCL (LOCAL ANESTH.) INJ 20ML MDV ONE (08:51)
--- NOTE | 2025-09-30 09:07 | ECG ---
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
--- NOTE | 2025-09-30 09:48 | DVHOP ---
PROCEDURES PERFORMED: * Selective left and right coronary angiography. * Ventriculogram. * Right iliac angiography. INDICATION: The patient is having excessive amount of shortness of breath and intermittent episodes of chest pain. Because of the above findings, the patient is suggested that the patient undergo coronary angiography to define coronary anatomy. Risks and benefits were explained to the patient. DESCRIPTION OF PROCEDURE: The patient was prepped and draped in the usual sterile condition. Xylocaine 1% was used to anesthetize the right groin. Using the Cook needle, the right femoral artery was engaged with a Seldinger technique. A 6-Turkmen sheath in the right femoral artery. Using a 6-Turkmen JL4 catheter and 6-Turkmen JR4 catheter, selective left and right coronary angiography was performed. Using a 6-Turkmen Pigtail catheter, a ventriculogram was done. There were no complications. The patient tolerated the procedure well. RESULTS: * Left main patent. * Left anterior descending artery was patent. * Right coronary artery was patent. * Circumflex artery was patent. * Left ventricular ejection fraction showed global hypokinesis with an estimated EF of less than 30% with an LVEDP of 15 mmHg. Aggressive risk modification should be implemented, but no catheter-based or surgical intervention is warranted. The patient will benefit from EECP. Sandeep Valentin MD SA/JAYESH TID: [id number] RECEIPT: [id number]
[2025-09-30] MEDS: LOSARTAN POTASSIUM 50 MG TAB PO SCH (10:00)
--- NOTE | 2025-09-30 10:03 | DVHPN2 ---
Progress Note - Dictate Date Seen: Sep 29, 2025 Medical Necessity Reason Pt with a Central, PICC or Fol: No Subjective PT WITH PROGRESSIVE SOB HX OF SYSTOLIC HF NOW WITH CHEST PAIN vital signs Vital Sign Date Time Temp Pulse Resp B/P (MAP) Pulse Ox O2 Delivery O2 Flow Rate FiO2 09/30/25 05:00 98.0 74 16 105/60 (75) 100 98.0 09/29/25 20:00 Room Air* 0 21 Total Intake and Output 09/29/25 09/29/25 09/30/25 15:00 23:00 07:00 Intake Total 0 ml 150 ml Balance 0 ml 150 ml medications Current Medications Medications Dose Ordered Sig/Lynsey Route Start Time Stop Time Status Last Admin Dose Admin Sodium Chloride 1,000 ml @ 60 mls/hr [id number] IV 09/29/25 16:15 Lorazepam 0.5 mg Q6HP PRN PO 09/29/25 16:15 Acetaminophen 650 mg Q6HP PRN PO 09/29/25 16:15 Acetaminophen/ Hydrocodone Bitart 1 tab Q4HP PRN PO 09/29/25 16:15 Ondansetron HCl 4 mg Q4HP PRN IV 09/29/25 16:15 Morphine Sulfate 2 mg Q4HPRN PRN IV 09/29/25 16:15 Nitroglycerin 0.4 mg Q5MINP PRN SL 09/29/25 16:15 Morphine Sulfate 2 mg Q30M PRN IV 09/29/25 16:15 Losartan Potassium 50 mg DAILY PO 09/30/25 10:00 Clonidine HCl 0.1 mg Q4HP PRN PO 09/29/25 17:15 09/30/25 01:38 0.1 MG laboratory and microbiology Laboratory Tests 09/29/25 16:32 Test 09/29/25 16:32 Range/Units Serum Glucose 86 74-106 mg/dL Problem List HFrEF CHRONIC Assessment/Plan [facility] Plan discussed with: Patient RACHEL SANDOVAL MD Sep 30, 2025 10:03
--- NOTE | 2025-09-30 10:04 | DVHPN2 ---
Progress Note - Dictate Date Seen: Sep 30, 2025 Medical Necessity Reason Pt with a Central, PICC or Fol: No Subjective PT WITH PROGRESSIVE SOB HX OF SYSTOLIC HF NOW WITH CHEST PAIN vital signs Vital Sign Date Time Temp Pulse Resp B/P (MAP) Pulse Ox O2 Delivery O2 Flow Rate FiO2 09/30/25 05:00 98.0 74 16 105/60 (75) 100 98.0 09/29/25 20:00 Room Air* 0 21 Total Intake and Output 09/29/25 09/29/25 09/30/25 15:00 23:00 07:00 Intake Total 0 ml 150 ml Balance 0 ml 150 ml medications Current Medications Medications Dose Ordered Sig/Lynsey Route Start Time Stop Time Status Last Admin Dose Admin Sodium Chloride 1,000 ml @ 60 mls/hr [id number] IV 09/29/25 16:15 Lorazepam 0.5 mg Q6HP PRN PO 09/29/25 16:15 Acetaminophen 650 mg Q6HP PRN PO 09/29/25 16:15 Acetaminophen/ Hydrocodone Bitart 1 tab Q4HP PRN PO 09/29/25 16:15 Ondansetron HCl 4 mg Q4HP PRN IV 09/29/25 16:15 Morphine Sulfate 2 mg Q4HPRN PRN IV 09/29/25 16:15 Nitroglycerin 0.4 mg Q5MINP PRN SL 09/29/25 16:15 Morphine Sulfate 2 mg Q30M PRN IV 09/29/25 16:15 Losartan Potassium 50 mg DAILY PO 09/30/25 10:00 Clonidine HCl 0.1 mg Q4HP PRN PO 09/29/25 17:15 09/30/25 01:38 0.1 MG laboratory and microbiology Laboratory Tests 09/29/25 16:32 Test 09/29/25 16:32 Range/Units Serum Glucose 86 74-106 mg/dL Problem List HFrEF CHRONIC Assessment/Plan [facility] S/P NORMAL CORONARIES EF 30% MAY DC HOME F/U IN 2 WEEKS Plan discussed with: Patient RACHEL SANDOVAL MD Sep 30, 2025 10:04
--- NOTE | 2025-09-30 10:53 | DVHDS2 ---
Discharge Summary Date of Admission Sep 29, 2025 at 14:54 Date of Discharge: Sep 30, 2025 Labs/Diagnostic Data: Laboratory Results Test 09/29/25 17:45 09/29/25 16:32 Urine Color Colorless (Yellow) Urine Clarity Clear (Clear) Urine pH 6.5 (5.0-9.0) Urine Specific [place] 1.013 (1.001-1.035) Urine Protein Negative (Negative) Urine Ketones Negative (Negative) Urine Blood Negative /uL (Negative) Urine Nitrite Negative (Negative) Urine Bilirubin Negative (Negative) Urine Urobilinogen Normal mg/dL (Negative) Urine Leukocyte Esterase Negative /uL (Negative) Urine RBC 1 /hpf (0 - 4) Urine Microscopic WBC < 1 /HPF (0-5) Urine Squamous Epithelial Cells None seen /hpf (<5) Urine Bacteria None seen /hpf (None Seen) Urine Glucose Normal mg/dL (Normal) White Blood Count 8.8 10^3/uL (4.4-10.8) Red Blood Count 4.37 10^6/uL (4.0-5.20) Hemoglobin 13.2 g/dL (12.2-16.2) Hematocrit 39.6 % (36.0-46.0) Mean Corpuscular Volume 90.7 fL (80.0-100.0) Mean Corpuscular Hemoglobin 30.3 pg (28.0-32.0) Mean Corpuscular Hemoglobin Concent 33.4 g/dL (32.0-36.0) Red Cell Distribution Width 13.7 % (11.8-14.3) Platelet Count 219 10^3/uL (140-450) Mean Platelet Volume 9.5 fL (6.9-10.8) Neutrophils (%) (Auto) 59.6 % (37.0-80.0) Lymphocytes (%) (Auto) 31.0 % (10.0-50.0) Monocytes (%) (Auto) 7.5 % (0.0-12.0) Eosinophils (%) (Auto) 0.8 % (0.0-7.0) Basophils (%) (Auto) 1.1 % (0.0-2.0) Neutrophils # (Auto) 5.3 10 ^3/uL (1.6-8.6) Lymphocytes # (Auto) 2.7 10 ^3/uL (0.4-5.4) Monocytes # (Auto) 0.7 10 ^3/uL (0-1.3) Eosinophils # (Auto) 0.1 10 ^3/uL (0-0.8) Basophils # (Auto) 0.1 10 ^3/uL (0-0.2) Nucleated Red Blood Cells 0.1 % Prothrombin Time 10.6 sec (9.3-11.8) Prothrombin Time INR 1.00 (0.9-1.15) Activated Partial Thromboplast Time 29.9 SEC (24.5-34.5) Sodium Level 143 mmol/L (136-145) Potassium Level 4.2 mmol/L (3.5-5.1) Chloride Level 106 mmol/L (98-107) Carbon Dioxide Level 26 mmol/L (20-31) Anion Gap 11 (5-15) Blood Urea Nitrogen 18 mg/dL (9-23) Creatinine 0.91 mg/dL (0.550-1.02) Glomerular Filtration Rate Calc 75 mL/min (>90) BUN/Creatinine Ratio 19.8 (10.0-20.0) Serum Glucose 86 mg/dL (74-106) Hemoglobin A1c 5.7 % A1C (<5.7) Calcium Level 9.8 mg/dL (8.7-10.4) Total Bilirubin 0.5 mg/dL (0.2-1.0) Aspartate Amino Transferase (AST) 22 U/L (13-40) Alanine Aminotransferase (ALT) 25 U/L (7-40) Alkaline Phosphatase 104 U/L (46-116) Total Protein 7.3 g/dL (5.7-8.2) Albumin 4.4 g/dL (3.2-4.8) Other Laboratory Tests 09/29/25 16:32 Brief Hx & Hospital Course: see dictated note Condition at Discharge: Fair Final Diagnosis/Problems List chest pain Discharge Disposition: Home Discharge Instruct/Medications Diet: Cardiac 2g Na,low cholest Activity: No Restrictions, As Tolerated Follow Up/Referral: fu with dr Adorno in 2 wks Medications: script to pharmacy dc losartan Scheduled Cholecalciferol (Vitamin D3), 2,000 UNIT PO DAILY, (Reported) Cyanocobalamin (Vitamin B12), 100 MCG PO DAILY, (Reported) Ergocalciferol (Vitamin D2), 50,000 UNIT PO QWEEKLY, (Reported) Ibuprofen (Ibuprofen), 1 TAB PO TID Losartan Potassium (Losartan Potassium), 1 TAB PO DAILY, (Reported) Methylprednisolone (Medrol Dosepak), 4 MG PO UD Potassium Chloride (Potassium Chloride Cr), 20 MEQ PO BID, (Reported) Sulfamethoxazole W/Trimethopri (Bactrim Ds Tablet), 1 TAB PO BID Miscellaneous Medications Ascorbic Acid (Vitamin C Tablet), 1,000 MG PO, (Reported) Cyanocobalamin (B12), 1,000 MCG PO, (Reported) Lisinopril (Lisinopril), 10 MG PO, (Reported) Discharge Statement: "Patient was advised to return to the ER or call 911 if any headaches, dizziness, shortness of breath, chest pain, abdominal pain, bleeding, fevers, or worsening of medical condition. Patient was counseled about treatment plan, medications, possible side effects, patientverbalized understanding. All questions were answered to the best of my ability. This discharge took greater then 30 minutes in planning, reviewing documentation, counseling the patient, and discussing with other team members." ASSESSMENT ASSESSMENT Assessment chest pain Date of Service: Sep 30, 2025 Billing Provider: JANINA MARSHALL MD Common Visit Codes: 67265-UOZ/OBS DISCH DAY >30min JANINA MARSHALL MD Sep 30, 2025 10:53
[2025-09-30] MEDS ORDERED: SACU1TAB PO ×2 (10:55→15:45)
[2025-09-30] MEDS ORDERED: CARV-214 PO (10:55)
[2025-09-30] MEDS ORDERED: EMPA1TAB PO (10:55)
[2025-09-30] MEDS: ONDANSETRON HCL 4 MG/2 ML VIAL IV PRN (12:21)
[2025-09-30] MEDS: HYDROcodone-ACET 5/325MG TAB PO PRN (12:22)
--- NOTE | 2025-09-30 17:36 | DVHDS ---
DATE OF DISCHARGE: 09/30/2025 HISTORY OF PRESENT ILLNESS: The patient is a 55-year-old lady who was admitted with complaints of chest pain and has a history of chronic systolic heart failure and hypertension. HOSPITAL COURSE: The patient underwent coronary angiography by Dr. Hopkins that showed normal coronaries with ejection fraction of 30% and LVEDP of 15. The patient will now be discharged home to stop the losartan and will be on Entresto half tablet b.i.d. along with Coreg 3.125 mg p.o. b.i.d. and Jardiance 10 mg daily. She will follow up with Dr. Adorno in the next 2 weeks. FINAL DIAGNOSES: * Chest pain with coronary artery disease ruled out. * Chronic systolic heart failure. * Hypertensive heart disease. * Hypertension. Time spent in discharge planning and review of plan with the patient and family at bedside was 38 minutes. MD JAXSON Dsouza/CAREY TID: [id number] RECEIPT: [id number]
--- NOTE | 2025-10-02 10:21 | ECG ---
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
== END 2025-09-30 14:35 | disposition home or self-care (01) | DRG 192 ==
LOC: CENTRAL 14:54 → TELE-CENTR 16:06
PROVIDERS: ADMIT Internal Medicine; ATTEND Internal Medicine
PROC: 4A023N7 Measurement of Cardiac Sampling and Pressure, Left Heart, Percutaneous Approach (ICD-10-PCS; principal; 2025-09-30)
PROC: B2151ZZ Fluoroscopy of Left Heart using Low Osmolar Contrast (ICD-10-PCS; 2025-09-30)
PROC: B2111ZZ Fluoroscopy of Multiple Coronary Arteries using Low Osmolar Contrast (ICD-10-PCS; 2025-09-30)
DX: I16.0 Hypertensive urgency (principal); I50.22 Chronic systolic (congestive) heart failure; I11.0 Hypertensive heart disease with heart failure; Z88.1 Allergy status to other antibiotic agents; Z88.0 Allergy status to penicillin
CPT/HCPCS: 36415; 71045; 80053; 81001; 83036; 85025; 85610; 85730; 86850; 86900; 86901; 93005; 93458; 99152; G0378; J2250; J2405